=== PATIENT | male | born 1955 | race Caucasian/White ===

== ENCOUNTER → 2016-06-15 | Outpatient (CLI) | payer BC ==
--- NOTE | 2016-06-15 22:17 | EKG REPORT ---
SEVERITY:- NORMAL ECG - SINUS RHYTHM : Confirmed by: Amrik Ochoa 15-Jun-2016 22:17:09
== END ==
LOC: OD 13:00
PROVIDERS: ATTEND Orthopaedic Surgery
DX: S83.231A Complex tear of medial meniscus, current injury, right knee, initial encounter (principal); X58.XXXA Exposure to other specified factors, initial encounter
CPT/HCPCS: 93005; 93010

== ENCOUNTER → 2019-02-19 | Outpatient (CLI) | payer BC | LOC: OD 12:28 | PROVIDERS: ATTEND Obstetrics & Gynecology | DX: I10 Essential (primary) hypertension (principal) | CPT/HCPCS: 36415; 83835 ==

== ENCOUNTER 2019-04-04 12:10 | Day surgery (SDC) | payer BC ==
--- NOTE | 2019-03-29 11:48 | EKG REPORT ---
SEVERITY:- NORMAL ECG - SINUS RHYTHM : Confirmed by: Alyssa Whitt MD 29-Mar-2019 11:46:49
[~2019-04-04 12:10] MED LIST: RINGERS SOLUTION,LACTATED 1,000 ML IV PRN
[2019-04-04] MEDS ORDERED: PROPOFOL INJ 200 MG/20 ML VIAL IV ONE (14:01)
--- NOTE | 2019-04-04 15:00 | Discharge Summary ---
Discharge Summary (SDC) - Discharge Final Diagnosis: Rectal bleeding, internal hemorrhoids Date of Surgery: 04/04/19 Discharge Date: 04/04/19 Condition: Stable Treatment or Instructions: Discharge home. Diet as tolerated. Activity: Nonstrenuous. Follow-up with me in 2 to 3 weeks. Fiber supplement twice daily. Lidocaine 5% ointment/cream, apply to rectum 3 times daily. Warm tub soaks/sitz baths twice daily with soapy water. Referrals: DERICK HERRON MD [Primary Care Provider] - Discharge Diet: As Tolerated Respiratory Treatments at Home: Deep Breathing/Coughing, Incentive Spirometer Discharge Activity: Balance Activity w/Rest Report the Following to Your Physician Immediately: Shortness of Breath, Nausea, Vomiting, Increase in Pain, Fever over 101 Degrees, Unusual Bleeding
--- NOTE | 2019-04-04 15:04 | Operative Report ---
Nonrecallable Operative Report DATE OF SURGERY: 04/04/19 PREOPERATIVE DIAGNOSIS: Rectal bleeding POSTOPERATIVE DIAGNOSIS: Internal hemorrhoids OPERATION: 1. Colonoscopy to the cecum. 2. Rubber band ligation of internal hemorrhoids x5. SURGEON: KAMRAN MELARA ANESTHESIA: LMAC TISSUE REMOVED OR ALTERED: None COMPLICATIONS: None apparent ESTIMATED BLOOD LOSS: Minimal PROCEDURE: Procedure in detail: After informed consent was obtained, the patient was brought to the operating room and laid in the left lateral decubitus position. The endoscope was passed up the rectum, sigmoid colon, descending colon, across the transverse colon, down the ascending colon, and into the cecum. The ileocecal valve and appendiceal orifice were identified. The scope was then withdrawn, circumferentially noting the mucosa. The prep was good. The scope was withdrawn past the ascending colon, transverse colon, down the descending colon, sigmoid colon, and into the rectum. Throughout the colon there were no masses, lesions, diverticula, ulcerations, masses, tumors, polyps, inflammation, or other abnormality noted. A retroflexion maneuver was performed in the rectum, noting moderate sized internal hemorrhoids circumferentially. The scope was then straightened, air was suctioned from the rectum, the scope was removed, and this portion of the procedure was concluded. A [place] retractor was then inserted into the rectum. There were enlarged internal hemorrhoids noted in the right anterior, right posterior, and left lateral columns. The rubber band ligation device was used to ligate hemorrhoids in all 3 positions. 5 rubber bands were placed in-total. Once this was completed, the [place] retractor was removed, and the procedure was concluded. All sponge, instrument, needle counts were correct x2. Condition: Stable.
[2019-04-04 18:38] VITALS: BP 156/91
== END 2019-04-04 16:10 | disposition home or self-care (01) ==
LOC: OROUT 12:10
PROVIDERS: ATTEND Surgery
DX: K64.8 Other hemorrhoids (principal); K62.89 Other specified diseases of anus and rectum; R19.7 Diarrhea, unspecified; I10 Essential (primary) hypertension; Z87.891 Personal history of nicotine dependence; Z79.899 Other long term (current) drug therapy
CPT/HCPCS: 45378; 46221; 93005; 36415; 84132; 93010; 00811; J2704; 811